=== PATIENT | male | born 1995 | race Caucasian/White ===

== ENCOUNTER 2018-03-15 15:07 | Emergency (ER) | payer OTHER ==
[2018-03-15 15:28] VITALS: TEMP 36.9
[2018-03-15] MEDS ORDERED: LIDOCAINE 1% BUFFERED INJ 20 ML VIAL INFIL ONE (16:00)
--- NOTE | 2018-03-15 16:24 | DIAGNOSTIC IMAGING REPORT ---
FACIAL BONES-MXILLOFAC WITHOUT CT DOSE: HISTORY: Trauma FACIAL TRAUMA TECHNIQUE: Multiaxial CT images of the maxillofacial region were performed and reformatted in the coronal plane without the use of contrast. A dose lowering technique was utilized adhering to the principles of ALARA. COMPARISON: None. FINDINGS: The visualized cervical spine, skull base, pterygoid plates, nasal bones, lamina papyracea, orbital floors, mandible, and zygomatic arches are intact. No fractures. The orbits are unremarkable. Focal soft tissue disruption lateral aspect left orbit as well as left premaxillary region. IMPRESSION: Soft tissue edema. No acute bony abnormality. The above report was generated using voice recognition software. It may contain grammatical, syntax or spelling errors. Electronically signed by: Dimitris Harvey M.D. 03/15/2018 4:23 PM Dictated Date/Time: 03/15/2018 4:21 PM
--- NOTE | 2018-03-15 16:25 | DIAGNOSTIC IMAGING REPORT ---
CERVICAL SPINE W/O CT DOSE: HISTORY: Trauma FACIAL TRAUMA TECHNIQUE: Multiaxial CT images of the cervical spine were performed and reformatted in the sagittal and coronal plane without the use of contrast. A dose lowering technique was utilized adhering to the principles of ALARA. COMPARISON: None. FINDINGS: Reversal of the normal cervical curvature consistent with muscular spasm. Vertebral body stature is normal. No evidence for compression deformity. C1-C2 complex is intact. IMPRESSION: 1. Muscle spasm. 2. No acute bony abnormality. The above report was generated using voice recognition software. It may contain grammatical, syntax or spelling errors. Electronically signed by: Dimitris Harvey M.D. 03/15/2018 4:24 PM Dictated Date/Time: 03/15/2018 4:23 PM
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
[2018-03-15] MEDS ORDERED: OXYCODONE HCL IR 5 MG TAB (IMMEDIATE RELEASE) PO STA (16:37)
--- NOTE | 2018-03-15 17:37 | DIAGNOSTIC IMAGING REPORT ---
R HAND MIN 3 VIEWS ROUTINE CLINICAL HISTORY: 22 years-old Male presenting with R HAND PAIN (4TH FINGERNAIL LACERATION). TECHNIQUE: Frontal, oblique, and lateral views of the right hand were obtained. COMPARISON: None. FINDINGS: A bandage overlies the third and fourth fingers. This does not significantly obscure underlying osseous detail. Small linear defect evident at the tuft of the distal phalanx of the fourth finger visible only on lateral view. This likely a nondisplaced fracture. This may be incomplete. No malalignment. No advanced degenerative change. IMPRESSION: Incomplete fracture of the tuft of the distal phalanx of the fourth finger suspected. Electronically signed by: Yony Shelton M.D. 03/15/2018 5:36 PM Dictated Date/Time: 03/15/2018 5:33 PM
[2018-03-15] MEDS ORDERED: TRAMADOL HCL 50 MG HOME PACK PO ONE (20:00)
[2018-03-15] MEDS ORDERED: CEPHALEXIN 500MG HOME PACK 1 EA BTL PO ONE (20:00)
[2018-03-15] MEDS ORDERED: CEPH500C PO (20:08)
[2018-03-15] MEDS ORDERED: TRAM-10 PO (20:08)
[2018-03-15 20:09] VITALS: BP 130/70; PULSE 70; O2SAT 100
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
== END 2018-03-15 20:39 | disposition home or self-care (01) ==
LOC: C.EDB 15:11 → C.EDC 20:39
DX: S01.81XA Laceration without foreign body of other part of head, initial encounter (principal); S62.604B Fracture of unspecified phalanx of right ring finger, initial encounter for open fracture; S06.0X9A Concussion with loss of consciousness of unspecified duration, initial encounter; V00.141A Fall from scooter (nonmotorized), initial encounter; Y92.39 Other specified sports and athletic area as the place of occurrence of the external cause